=== PATIENT | female | born 1945 | race Caucasian/White ===

== ENCOUNTER → 2017-01-12 | Outpatient (CLI) | payer OTHER ==
--- NOTE | ~2017-01-12 | BD1 ---
[facility] A Service of [facility] RADIOLOGY TEXT RESULTS PATIENT: VIRAJ SOUZA LOCATION: [facility] : 45 UNIT #: [id number] AGE: [address]: Zhou Franco MD SEX: F ORDER DR: [id number] [facility] [address] [place], [place] [address] [id number] O MR#: [id number] Acc #: [id number] NAME: VIRAJ SOUZA : 1945 SEX: F STUDY DATE/TIME: 01/12/2017 9:16 UNIT: [facility] ROOM: STUDY DESCRIPTION: BD Dexa Bone Dens 1+ Site Attending Physician: Zhou Franco M.D. Ordering Physician: Zhou Franco M.D. Primary Care Physician: Brian Alonzo M.D. MEDICAL IMAGING REPORT This report is preliminary unless electronic signature is present EXAM DXA scan HISTORY Postmenopausal screening for osteoporosis. COMPARISON DXA scan 01/29/2014 FINDINGS Bone density was assessed utilizing Hologic bone densitometer. Total bone density in the lumbar spine was calculated at 0.908 g/cm2 with a T-score of -1.3. Bone density within the left femoral neck was calculated at 0.77 g/cm2 with a T-score of -0.6. When compared to the 2013 study there has been a statistically significant decrease in bone density between 4-6%. Bone density remains within the osteopenia range from lumbar spine. IMPRESSION Total bone density within the lumbar spine is greater than 1 standard deviation below the mean and is compatible with the World Health Organization criteria for osteopenia. With the decrease in bone density the patient has moved from the normal bone density in 2014 to categorization of osteopenia based on the World Health Organization criteria. Dictated by... Romie Oliver M.D. THIS IS AN ELECTRONICALLY VERIFIED REPORT Romie Oliver M.D. at 01/13/2017 2:32 PM JMS/rnr [facility] A Service [facility] RADIOLOGY TEXT RESULTS PATIENT: VIRAJ SOUZA LOCATION: [facility] : 45 UNIT #: [id number] AGE: [address]: Zhou Franco MD SEX: F ORDER DR: TD: 01/13/2017 04:45 JOB #: [id number] MEDICAL IMAGING REPORT Page 1 of 1 COPY
--- NOTE | ~2017-01-12 | MY29 ---
[facility] A Service of [facility] RADIOLOGY TEXT RESULTS PATIENT: VIRAJ SOUZA LOCATION: [facility] : 45 UNIT #: [id number] AGE: [address]: Zhou Franco MD SEX: F ORDER DR: [id number] [facility] [address] [place], [place] [address] [id number] O MR#: [id number] Acc #: [id number] NAME: VIRAJ SOUZA : 1945 SEX: F STUDY DATE/TIME: 01/12/2017 8:47 UNIT: [facility] ROOM: STUDY DESCRIPTION: [facility] SCREENING W/ CAD BILAT Attending Physician: Zhou Franco M.D. Ordering Physician: Zhou Franco M.D. Primary Care Physician: Brian Alonzo M.D. MEDICAL IMAGING REPORT This report is preliminary unless electronic signature is present EXAM Digital screening mammogram with CAD. INDICATIONS Routine screening. PROCEDURE Bilateral CC and MLO views obtained on a digital mammography unit; FDA-approved CAD device utilized. COMPARISON 01/29/2014 FINDINGS Breasts are predominantly fat replaced. There is no dominant mass or suspicious calcification. IMPRESSION Negative screening mammogram; screening interval of 1 year suggested. Patients over the age of 40 are entered into a reminder system with target due date for the next mammogram. A result letter will also be sent to the patient. BIRADS: 1 Negative Dictated by... Vernon Waldron M.D. THIS IS AN ELECTRONICALLY VERIFIED REPORT Vernon Waldron M.D. at 01/13/2017 7:02 AM SHAGGY/juan josé [facility] A Service [facility] RADIOLOGY TEXT RESULTS PATIENT: VIRAJ SOUZA LOCATION: [facility] : 45 UNIT #: [id number] AGE: [address]: Zhou Franco MD SEX: F ORDER DR: TD: 01/12/2017 14:58 JOB #: [id number] MEDICAL IMAGING REPORT Page 1 of 1 COPY
== END | disposition home or self-care (01) ==
LOC: CWCC 08:37
DX: Z12.31 Encounter for screening mammogram for malignant neoplasm of breast (principal); M85.80 Other specified disorders of bone density and structure, unspecified site; Z78.0 Asymptomatic menopausal state
CPT/HCPCS: 77080; G0202